=== PATIENT | male | born 1990 ===

== ENCOUNTER 2017-08-24 23:33 | Emergency (ER) | payer OTHER ==
[2017-08-25] MEDS ORDERED: Ketorolac 60 MG/2 ML SDV IM ONE (00:32)
--- NOTE | 2017-08-25 00:35 | EDM.PDOC ---
ED HPI GENERAL MEDICAL PROBLEM - General Chief Complaint: Upper Extremity Injury/Pain Stated Complaint: LEFT SHOULDER PAIN Time Seen by Provider: 08/25/17 00:31 - History of Present Illness INITIAL COMMENTS - FREE TEXT/NARRATIVE: HISTORY AND PHYSICAL: History of present illness: The patient is a 27-year-old male who presents with complaints of left shoulder proximal humerus pain that started an hour or so ago when he fell on the ice. He said that when he slipped and fell he landed right on the shoulder and did not hit his head pass out or blackout. He has no head neck or back pain and no chest wall pain. Prior to these events he was in his usual state of good health without any systemic complaints. Patient has no distal elbow forearm wrist or hand pain on the left. He doesn't want to move the shoulder because it is discomforting and he has no neurosensory changes in the distal forearm and hand. He has not taken any medication for this. Review of systems: As per history of present illness and below otherwise all systems reviewed and negative. Past medical history: As per history of present illness and as reviewed below otherwise noncontributory. Surgical history: As per history of present illness and as reviewed below otherwise noncontributory. Social history: No reported history of drug or alcohol abuse. Family history: As per history of present illness and as reviewed below otherwise noncontributory. Physical exam: HEENT: Atraumatic, normocephalic, negative for conjunctival pallor or scleral icterus, mucous membranes moist, throat clear, neck supple, nontender, trachea midline. There are no midline step-offs in his defects of the cervical spine Lungs: Clear to auscultation, breath sounds equal bilaterally, chest nontender. Heart: S1S2, regular rate and rhythm no overt murmurs Abdomen: Soft, nondistended, nontender. NABS. Pelvis: Stable nontender. Genitourinary: Deferred. Rectal: Deferred. Extremities: Atraumatic. Throughout all extremities including the left upper extremity. The patient will allow me to passively range of motion at the left upper extremity including the shoulder and there is no clinical dislocation. There are no palpable bony deformities at the clavicle shoulder humerus elbow forearm wrist or hand nor the scapula. There is no anterior chest wall tenderness in this left upper area. There is no swelling ecchymosis defects or deformities. All other extremities are without injury and the legs are, negative for cords or calf pain. Neurovascular unremarkable. Neuro: Awake, alert, oriented. Cranial nerves II through XII unremarkable. Cerebellum unremarkable. Motor and sensory unremarkable throughout. Exam nonfocal. Back: There are no midline step-offs in his defects of the thoracic or lumbar spine and no posterior rib tenderness Diagnostics: 1 view chest x-ray, left shoulder and left humerus x-rays Therapeutics: Toradol sling Impression: Left shoulder injury/contusion Definitive disposition and diagnosis as appropriate pending reevaluation and review of above. left shoulder Pain Score (Numeric/FACES): 7 - Related Data Allergies Allergy/AdvReac Type Severity Reaction Status Date / Time No Known Allergies Allergy Verified 08/25/17 00:30 Home Meds: Home Meds . [No Known Home Meds] 12/16/16 [History] Past Medical History - Past Health History Medical/Surgical History: Denies Medical/Surgical History Genitourinary History: Reports: Other (See Below) Other Genitourinary History: infection in the scrotum August 2016 Psychiatric History: Reports: ADHD, Bipolar Social & Family History - Family History Family Medical History: Noncontributory - Tobacco Use Smoking Status *Q: Current Every Day Smoker Years of Tobacco use: 6 Packs/Tins Daily: 1 - Caffeine Use Caffeine Use: Reports: Coffee - Recreational Drug Use Recreational Drug Use: Yes Recreational Drug Type: Reports: Other (see below) Other Recreational Drug Type: currently on drug patch, started approximately 1 month ago Review of Systems - Review of Systems Review Of Systems: ROS reveals no pertinent complaints other than HPI. ED EXAM, GENERAL - Physical Exam Exam: See Below (See dictation) Course - Vital Signs Last Recorded V/S: Last Vital Signs Temp 36.9 C 08/25/17 00:35 Pulse 60 08/25/17 00:35 Resp 18 08/25/17 00:35 BP 111/50 L 08/25/17 00:35 Pulse Ox 97 08/25/17 00:35 - Orders/Labs/Meds Orders: Active Orders 24 hr Category Date Time Status Chest 1V Frontal [CR] Stat Exams 08/25/17 00:32 Taken Humerus Lt [CR] Stat Exams 08/25/17 00:32 Taken Shoulder Comp Lt [CR] Stat Exams 08/25/17 00:32 Taken DME for Discharge [COMM] Stat Oth 08/25/17 01:41 Ordered Meds: Medications Discontinued Medications Generic Name Dose Route Start Last Admin Trade Name Fabricio PRN Reason Stop Dose Admin Ketorolac Tromethamine 60 mg 08/25/17 00:32 08/25/17 01:02 Toradol IM 08/25/17 00:33 60 mg ONETIME ONE Administration Departure - Departure Time of Disposition: 01:41 Disposition: Home, Self-Care 01 Condition: Good Clinical Impression: Contusion of left shoulder Qualifiers: Encounter type: initial encounter Qualified Code(s): S40.012A - Contusion of left shoulder, initial encounter - Discharge Information Referrals: PCP,None [Primary Care Provider] - Forms: ED Department Discharge Additional Instructions: The following information is given to patients seen in the emergency department who are being discharged to home. This information is to outline your options for follow-up care. We provide all patients seen in our emergency department with a follow-up referral. The need for follow-up, as well as the timing and circumstances, are variable depending upon the specifics of your emergency department visit. If you don't have a primary care physician on staff, we will provide you with a referral. We always advise you to contact your personal physician following an emergency department visit to inform them of the circumstance of the visit and for follow-up with them and/or the need for any referrals to a consulting specialist. The emergency department will also refer you to a specialist when appropriate. This referral assures that you have the opportunity for followup care with a specialist. All of these measure are taken in an effort to provide you with optimal care, which includes your followup. Under all circumstances we always encourage you to contact your private physician who remains a resource for coordinating your care. When calling for followup care, please make the office aware that this follow-up is from your recent emergency room visit. If for any reason you are refused follow-up, please contact the [facility] emergency department at and ask to speak to the emergency department charge nurse. [facility]--Orthopedic clinic Professional [address] [address] Ice to area for discomfort and use [id number] Tylenol or ibuprofen/Motrin for pain and inflammation. Expect the pain to slowly improve over the next few days. Please try to range of motion and moves the arm as if you do not able get very stiff. After 2 days switch from ice to heat. Please call our clinic for further care and evaluation this week and return to ER as needed and as discussed. - My Orders Last 24 Hours: My Active Orders 08/25/17 00:32 Chest 1V Frontal [CR] Stat Humerus Lt [CR] Stat Shoulder Comp Lt [CR] Stat 08/25/17 01:41 DME for Discharge [COMM] Stat - Assessment/Plan Last 24 Hours: My Active Orders 08/25/17 00:32 Chest 1V Frontal [CR] Stat Humerus Lt [CR] Stat Shoulder Comp Lt [CR] Stat 08/25/17 01:41 DME for Discharge [COMM] Stat
[2017-08-25 02:03] VITALS: BP 114/56
--- NOTE | 2017-08-26 18:50 | CR ---
EXAM DATE: 08/24/17 PATIENT'S AGE: 27 Patient: CHRIS GORDON Facility: [place], [place] Site . Site : 1990 Study: XRay Chest [id number]/14/2018 1:28:15 AM Ordering Physician: Henok James Final Report: INDICATION: Chest Pain, shortness of breath fell TECHNIQUE: Chest radiograph 1 view COMPARISON: None FINDINGS: Mediastinum: The heart silhouette is normal in size and morphology. The mediastinum is normal in appearance. Lungs: Both lungs are unremarkable in appearance. No sign of pleural effusion seen. No pneumothorax is identified. Bones and soft tissue: Unremarkable for age. IMPRESSION: 1. No acute cardiopulmonary disease is seen. Dictated by: Tru Chaudhary MD @ 08/25/2017 01:35:06 (Electronic Signature) Report Signed by Proxy. [facility]
--- NOTE | 2017-08-26 18:51 | CR ---
EXAM DATE: 08/24/17 PATIENT'S AGE: 27 Patient: CHRIS GORDON Facility: [place], [place] Site . Site : 1990 Study: XRay Shoulder Left [id number]/14/2018 1:29:04 AM Ordering Physician: Henok James Final Report: INDICATION: Fell severe pain left shoulder TECHNIQUE: Shoulder radiograph 3 views left COMPARISON: None FINDINGS: Bones: No acute fractures or aggressive bone lesions are identified. Old clavicular deformity noted from prior injury. Joints: The glenohumeral is unremarkable. The acromioclavicular joint is unremarkable. Soft tissues: The visualized hemithorax and soft tissues are unremarkable in appearance. No radiopaque foreign bodies are seen. IMPRESSION: 1. No acute osseous injuries or abnormalities are noted. Dictated by: Tru Chaudhary MD @ 08/25/2017 01:36:19 (Electronic Signature) Report Signed by Proxy. AV[facility]
--- NOTE | 2017-08-26 18:52 | CR ---
EXAM DATE: 08/24/17 PATIENT'S AGE: 27 Patient: CHRIS GORDON Facility: [place], [place] Site . Site : 1990 Study: XRay Extremity Left [id number]/14/2018 1:30:01 AM Ordering Physician: Henok James Final Report: INDICATION: Fell with arm pain TECHNIQUE: Humerus radiograph 2 views left COMPARISON: None FINDINGS: Bones: Alignment is normal. No acute fractures or aggressive bone lesions identified. Joint spaces: The glenohumeral and a.c. joints are unremarkable. The elbow joint is not profiled. Soft tissues: Unremarkable. No radiopaque foreign bodies are seen. IMPRESSION: 1. No acute osseous injuries are noted. Dictated by: Tru Chaudhary MD @ 08/25/2017 01:37:34 (Electronic Signature) Report Signed by Proxy. [facility]
== END 2017-08-25 01:52 | disposition home or self-care (01) ==
LOC: MW.ED 23:33
DX: S40.012A Contusion of left shoulder, initial encounter (principal); F17.210 Nicotine dependence, cigarettes, uncomplicated; W00.0XXA Fall on same level due to ice and snow, initial encounter
CPT/HCPCS: 71045; 73030; 73060; 96372; 99283; J1885; 99284